=== PATIENT | female | born 1960 | race Caucasian/White ===

== ENCOUNTER 2019-04-05 11:16 | Emergency (ER) | payer BC ==
[~2019-04-05] VITALS: Ht 162.6 cm; Wt 73.5 kg
--- NOTE | 2019-04-05 11:30 | NUR ---
ADMIT PT IN RM 2B, BIB AMBULANCE VIA GURNEY WITH C/O PAIN ON L SHOULDER AND L KNEEFROM A MECHANICAL FALL. PT VERY HYSTERICAL AND CRYING. SEEN AND EXAMINED BY MD WITH NEW ORDERS.
[2019-04-05] MEDS: MORPHINE SULFATE 4 MG/1 ML DISP.SYRIN IM ONE (11:40)
--- NOTE | 2019-04-05 11:40 | NUR ---
PT IS MEDICATED WITH MORPHINE 4MG IM RIGHT DELTOID FOR HER PAIN LEVEL 10. PT IS RELAXING A LITTLE BIT. SBP 128/70.
[2019-04-05] MEDS ORDERED: MORPHINE SULFATE 4 MG/1 ML DISP.SYRIN ONE (11:41)
--- NOTE | 2019-04-05 11:51 | NUR ---
PORTABLE XRAY FOR SHOULDER AND KNEE DONE ORDERED.
--- NOTE | 2019-04-05 12:30 | NUR ---
PLACED AN ARM SLING ON THE LEFT ARM ORDERED. PT FEELS BETTER AFTER THE PAIN MEDICINE.
--- NOTE | 2019-04-05 13:30 | NUR ---
DISCHARGE INSTRUCTIONS GIVEN TO PT WITH GOOD UNDERSTANDING.
[2019-04-05 14:23] VITALS: BP 118/80
== END 2019-04-05 13:35 | disposition home or self-care (01) ==
LOC: ER 11:16
DX: M25.512 Pain in left shoulder (principal); M25.562 Pain in left knee; M25.522 Pain in left elbow; R51 Headache; W18.39XA Other fall on same level, initial encounter; Y93.89 Activity, other specified; Y92.89 Other specified places as the place of occurrence of the external cause; Y99.8 Other external cause status
CPT/HCPCS: 73030; 73080; 73564; 96372; 99283; J2270; A4663